=== PATIENT | female | born 1945 ===

== ENCOUNTER 2023-02-02 05:10 | Day surgery (SDC) | payer OTHER ==
[2023-01-28 14:55] VITALS: BMI 22.6
[2023-02-02] MEDS ORDERED: metroNIDAZOLE 0.75% VAGINAL GEL 70 GM TUBE ONE (10:47)
[2023-02-02] MEDS ORDERED: MIDAZOLAM HCL 2 MG/2 ML SINGLE DOSE VIAL ONE (11:18)
[2023-02-02] MEDS ORDERED: PROPOFOL 20 ML ONE (11:18)
[2023-02-02] MEDS ORDERED: BUPIVACAINE HCL/PF 0.5% (5MG/ML) 10 ML VIAL ONE (11:29)
[2023-02-02] MEDS ORDERED: ceFAZolin SODIUM 1 GM VIAL IVPB ONE (11:40)
[2023-02-02] MEDS ORDERED: LIDOCAINE HCL 1%, 10 MG/ML (50 mL VIAL) INF ONE (11:45)
[2023-02-02] MEDS ORDERED: PHENYLEPHRINE HCL 10 MG/1 ML SINGLE DOSE VIAL ONE (11:51)
[2023-02-02] MEDS ORDERED: ONDANSETRON 4 MG/2 ML VIAL ONE ×2 (11:51→15:21)
[2023-02-02] MEDS ORDERED: ceFAZolin SODIUM 1 GM VIAL ONE (11:51)
[2023-02-02] MEDS ORDERED: DEXAMETHASONE SOD PHOSPHATE 4 MG/1 ML VIAL ONE (11:51)
[2023-02-02] MEDS ORDERED: ONDANSETRON 4 MG/2 ML VIAL IVPUSH PRN (12:27)
[2023-02-02] MEDS ORDERED: ACETAMINOPHEN 1000 MG/100 ML BAG IVPB ONE ×2 (12:27→12:47)
[2023-02-02] MEDS ORDERED: LACTATED RINGERS SOLUTION 1,000 ML IV SCH (12:30)
[2023-02-02] MEDS ORDERED: ACETAMINOPHEN INJECTION 100 ML IVPB ONE (12:42)
[2023-02-02 14:45] VITALS: RESP 18
[2023-02-02] MEDS ORDERED: ONDANSETRON 4 MG/2 ML VIAL IVPB ONE (15:25)
[2023-02-02 17:10] VITALS: BP 141/81; PULSE 89; TEMP 98.2
== END 2023-02-02 17:10 | disposition home or self-care (01) ==
LOC: JASU-SURG 05:10
PROVIDERS: ATTEND Urology
PROC: 0JQC0ZZ Repair Pelvic Region Subcutaneous Tissue and Fascia, Open Approach (ICD-10-PCS; 2023-02-02)
PROC: 0TSD0ZZ Reposition Urethra, Open Approach (ICD-10-PCS; principal; 2023-02-02 11:30)
DX: N39.3 Stress incontinence (female) (male) (principal); N81.10 Cystocele, unspecified
CPT/HCPCS: 57240; 57288; C1771; 88302-TC; 94760